=== PATIENT | male | born 1985 | race Hispanic/Latino ===

== ENCOUNTER 2018-06-08 21:55 | Emergency (ER) | payer SELFPAY ==
[2018-06-08 22:32] LABS: Absolute Monocytes 0.8 K/uL (0.1-1.3); Absolute Neutrophil 2.6 K/uL (1.8-8.0); Basophils % 0.8 % (0-1.3); Hematocrit 42.3 % (39.6-49.0); Lymphocytes % 36.3 % (15.3-44.8); MPV 8.2 fL (7.6-11.3); Monocytes % 14.3 % (3.3-12.3); RBC Red Blood Cell Count 4.74 M/uL (4.33-5.43)
[2018-06-08 22:36] LABS: Protime INR 1.06
[2018-06-08 22:37] LABS: Urine Blood NEGATIVE (NEG); Urine Glucose NEGATIVE (NEG); Urine Protein 2+ (NEG); Urine Specific Gravity 1.025 (1.005-1.030); Urine pH 6.5 (5.0-7.0)
[2018-06-08 22:51] LABS: Barbiturates NEGATIVE (NEGATIVE); Benzodiazepines NEGATIVE (NEGATIVE); Cocaine NEGATIVE (NEGATIVE); METHAMPHETAM POSITIVE (NEGATIVE); Methadone NEGATIVE (NEGATIVE); Opiates NEGATIVE (NEGATIVE); Phencyclidine NEGATIVE (NEGATIVE); THC Cannibis NEGATIVE (NEGATIVE)
--- NOTE | 2018-06-08 22:59 | ER ---
Nurse's Notes [facility] Name: Mark Cazares Age: 32 yrs Sex: Male : 1985 Arrival Date: 06/08/2018 Time: 21:57 Bed 25 Private MD: Diagnosis: Chest pain, unspecified Presentation: 06/08 21:58 Presenting complaint: EMS states: pt C/O chest pain after hyperventilating. Pt reported ca1 to have injected himself with Methamphetamine prior to hyperventilation. Also, reported to have been using Meth for a year now and has not eaten in days. Transition of care: patient was not received from another setting of care. Onset of symptoms was June 08, 2018. Risk Assessment: Do you want to hurt yourself or someone else? Patient reports no desire to harm self or others. Initial Sepsis Screen: Does the patient meet any 2 criteria? RR > 20 per min. HR > 90 bpm. Does the patient have a suspected source of infection? No. Patient's initial sepsis screen is negative. Care prior to arrival: IV initiated. 20 GA, in the left antecubital area, Glucose check: 99. 21:58 Method Of Arrival: EMS: [facility] ca1 21:58 Acuity: REGINO 3 ca1 Triage Assessment: 22:05 General: Appears in no apparent distress. uncomfortable, Behavior is agitated. Pain: ca1 Denies pain. Historical: - Allergies: 22:04 No Known Allergies; ca1 - Home Meds: 22:04 None [Active]; ca1 - PMHx: 22:05 None; ca1 - PSHx: 22:04 None; ca1 - Immunization history:: Adult Immunizations not up to date. - Social history:: Smoking status: Patient uses tobacco products, denies chronic smoking, but will smoke occasionally. - Ebola Screening: : No symptoms or risks identified at this time. Screenin:10 Abuse screen: Denies threats or abuse. Denies injuries from another. Nutritional ca1 screening: No deficits noted. Tuberculosis screening: No symptoms or risk factors identified. Fall Risk None identified. Assessment: 22:10 General: Appears in no apparent distress. uncomfortable, Behavior is agitated. Pain: ca1 Denies pain. Neuro: Level of Consciousness is awake, alert, obeys commands, Oriented to person, place, time, situation. Cardiovascular: Heart tones S1 S2 present Capillary refill < 3 seconds Patient's skin is warm and dry. Cardiovascular: Rhythm is sinus tachycardia. Respiratory: Airway is patent Respiratory effort is even, unlabored, Respiratory pattern is regular, symmetrical, Breath sounds are clear bilaterally. GI: Abdomen is flat, non-distended, Bowel sounds present X 4 quads. Abd is soft and non tender X 4 quads. : No deficits noted. No signs and/or symptoms were reported regarding the genitourinary system. EENT: No deficits noted. No signs and/or symptoms were reported regarding the EENT system. Derm: Skin is intact, is healthy with good turgor, Skin is pink, warm \\T\\ dry. Musculoskeletal: Circulation, motion, and sensation intact. Capillary refill < 3 seconds. 22:20 Reassessment: Patient appears in no apparent distress at this time. Patient is ca1 alert/active/playful, equal unlabored respirations, skin warm/dry/pink. Pt reports of hearing his brother and "Isabela's voice", looked outside his room to look for his brother. 22:37 Reassessment: Pt still reports of hearing his brother's voice and he said he wants to ca1 go home. Wants his IV out and refuses treatment. KOSTAS Keller went to nurses station to inform provider. I removed IV then pt walked out of the ER. Vital Signs: 22:05 BP 146 / 78; Pulse 120; Resp 23 S; Temp 98.1; Pulse Ox 100% on R/A; Weight 108.86 kg; ca1 Height 6 ft. 0 in. (182.88 cm); Pain 0/10; 22:05 Body Mass Index 32.55 (108.86 kg, 182.88 cm) ca1 ED Course: 21:57 Patient arrived in ED. ca1 21:58 Kade Jimenez PA is PHCP. [facility] 21:58 Danish Zapata MD is Attending Physician. [facility] 22:04 Triage completed. ca1 22:05 Arm band placed on right wrist. EKG completed in triage. Results shown to MD. ca1 22:10 Patient has correct armband on for positive identification. Placed in gown. Bed in low ca1 position. Call light in reach. Side rails up X 1. crusher wet ground mica on. Pulse ox on. NIBP on. Warm blanket given. 22:10 Maintain EMS IV. Dressing intact. Good blood return noted. Site clean \\T\\ dry. Gauge \\T\\ ca 1 site: g20 LAC. 22:17 Kelly Boo, RN is Primary Nurse. ca1 22:37 IV discontinued, intact, bleeding controlled, No redness/swelling at site. Pressure ca1 dressing applied. 22:37 No provider procedures requiring assistance completed. ca1 Administered Medications: No medications were administered Outcome: 22:37 AMA Left before signing form. ca1 22:37 Condition: stable 22:37 Discharge instructions given to Instructed on 22:59 Patient left the ED. ca1 Signatures: Kade Jimenez PA PA jmm Acob, Cheryl RN RN ca1 Corrections: (The following items were deleted from the chart) 22:15 20:05 Patient has correct armband on for positive identification. Placed in gown. Bed ca1 in low position. Call light in reach. Side rails up X 1. ca1 22:15 20:05 crusher wet ground mica on. Pulse ox on. NIBP on. ca1 ca1 22:15 20:05 Warm blanket given. ca1 ca1 22:16 20:05 General: Appears in no apparent distress. uncomfortable, Behavior is agitated, ca1ca1 22:16 20:05 Pain: Denies pain. ca1 ca1 22:16 20:05 Neuro: Level of Consciousness is awake, alert, obeys commands, Oriented to ca1 person, place, time, situation, ca1 22:16 20:05 Cardiovascular: Heart tones S1 S2 present Capillary refill < 3 seconds Patient's ca1 skin is warm and dry. ca1 22:16 20:05 Respiratory: Airway is patent Respiratory effort is even, unlabored, Respiratory ca1 pattern is regular, symmetrical, Breath sounds are clear bilaterally. ca1 22:16 20:05 GI: ca1 ca1 22:16 20:05 Cardiovascular: Rhythm is sinus tachycardia ca1 ca1 22:16 20:05 GI: Abdomen is flat, non-distended, Bowel sounds present X 4 quads. Abd is soft ca1 and non tender X 4 quads. ca1 22:16 20:05 : No deficits noted. No signs and/or symptoms were reported regarding the ca1 genitourinary system. ca1 22:16 20:05 EENT: No deficits noted. No signs and/or symptoms were reported regarding the ca1 EENT system. ca1 22: 20:05 Derm: Skin is intact, is healthy with good turgor, Skin is pink, warm \\T\\ dry. ca1 ca1 22: 20:05 Musculoskeletal: Circulation, motion, and sensation intact. Capillary refill < 3 ca1 seconds, ca1 22: 20:05 Abuse screen: Denies threats or abuse. Denies injuries from another. ca1 ca1 22: 20:05 Nutritional screening: No deficits noted. ca1 ca1 22: 20:05 Tuberculosis screening: No symptoms or risk factors identified. ca1 ca1 22: 20:05 Fall Risk None identified. ca1 ca1 : 22:37 Reassessment: Pt still reports of hearing his brother's voice and he said he ca1 wants to go home. Wants his IV out and refuses treatment. KOSTAS Keller went to nurses station to inform provider. I removed IV then pt walked out of the ER. ca1
--- NOTE | 2018-06-08 23:00 | EDPHYS ---
Physician Documentation [facility] Name: Mark Cazares Age: 32 yrs Sex: Male : 1985 Arrival Date: 06/08/2018 Time: 21:57 Bed 25 Private MD: ED Physician Danish Zapata HPI: 06/08 22:14 This 32 yrs old Male presents to ER via EMS with complaints of Chest Pain. [facility] 22:14 The patient or guardian reports chest pain that is located primarily in the substernal [facility] area. The pain does not radiate. Associated signs and symptoms: Pertinent positives: shortness of breath. The chest pain is described as squeezing. This is a 32 year old male with no chronic medical conditions that presents to the ED with complaints of chest pain and shortness of breath after he injected methamphetamine. Patient states it was a stronger dose than previously given. Patient states he has not had a reaction like this before and he called EMS. Patient states his symptoms have currently resolved. . Historical: - Allergies: 22:04 No Known Allergies; ca1 - Home Meds: 22:04 None [Active]; ca1 - PMHx: 22:05 None; ca1 - PSHx: 22:04 None; ca1 - Immunization history:: Adult Immunizations not up to date. - Social history:: Smoking status: Patient uses tobacco products, denies chronic smoking, but will smoke occasionally. - Ebola Screening: : No symptoms or risks identified at this time. ROS: 22:14 Constitutional: Negative for fever, chills, and weight loss. jmm 22:14 Cardiovascular: Positive for chest pain. 22:14 Respiratory: Positive for shortness of breath. 22:14 All other systems are negative. Exam: 22:14 Head/Face: atraumatic. Eyes: EOMI, no conjunctival erythema appreciated ENT: Moist jm Mucus Membranes Neck: Trachea midline, Supple Chest/axilla: Normal chest wall appearance and motion. 22:14 Respiratory: Normal respirations, no respiratory distress appreciated Abdomen/GI: Non distended, soft Back: Normal ROM Skin: General appearance color normal MS/ Extremity: Moves all extremities, no obvious deformities appreciated, no edema noted to the lower extremities Neuro: Awake and alert, normal gait Psych: Behavior is normal, Mood is normal, Patient is cooperative and pleasant 22:14 Constitutional: The patient appears alert, awake, anxious. 22:14 Cardiovascular: Rate: tachycardic, Rhythm: regular, Pulses: no pulse deficits are appreciated. Vital Signs: 22:05 BP 146 / 78; Pulse 120; Resp 23 S; Temp 98.1; Pulse Ox 100% on R/A; Weight 108.86 kg; ca1 Height 6 ft. 0 in. (182.88 cm); Pain 0/10; 22:05 Body Mass Index 32.55 (108.86 kg, 182.88 cm) ca1 MDM: 22:19 Patient medically screened. [facility] 22:51 Data reviewed: vital signs, nurses notes. [facility] 22:51 ED course: I discussed the need for further evaluation due to concerns for life jm threatening cardiac conditions. Patient left the ED prior to full evaluation. . 06/08 22:14 Order name: Acetaminophen [facility] 06/08 22:14 Order name: Basic Metabolic Panel [facility] 06/08 22:14 Order name: CBC with Diff; Complete Time: 22:47 [facility] 06/08 22:14 Order name: ETOH Level [facility] 06/08 22:14 Order name: Hepatic Function [facility] 06/08 22:14 Order name: PT-INR; Complete Time: 22:47 [facility] 06/08 22:14 Order name: Ptt, Activated; Complete Time: 22:47 [facility] 06/08 22:14 Order name: Salicylate [facility] 06/08 22:14 Order name: Urine Drug Screen; Complete Time: 22:51 [facility] 06/08 22:14 Order name: Troponin (emerg Dept Use Only) [facility] 06/08 22:16 Order name: Acetaminophen Level [facility] 06/08 22:16 Order name: Basic Metabolic Panel [facility] 06/08 22:30 Order name: Urine Dipstick--Ancillary (enter results); Complete Time: 22:47 [facility] 06/08 22:14 Order name: EKG; Complete Time: 22:16 [facility] 06/08 22:14 Order name: EKG - Nurse/Tech; Complete Time: 22:25 [facility] 06/08 22:14 Order name: IV Saline Lock; Complete Time: 22:25 [facility] 06/08 22:14 Order name: Labs collected and sent; Complete Time: 22:25 [facility] 06/08 22:14 Order name: Urine Dipstick-Ancillary (obtain specimen); Complete Time: 22:25 [facility] Administered Medications: No medications were administered Disposition: 06/08/18 22:58 Patient has left against medical advice. Impression: Chest pain, unspecified. - Patients states they are going to Home. - Condition is Stable. Follow up: Private Physician; When: 2 - 3 days; Reason: Recheck today's complaints, Continuance of care, Re-evaluation by your physician. - Problem is new. - Symptoms have improved. Signatures: Dispatcher [employer] EDMS Kade Jimenez PA PA jmm Acob, Cheryl RN RN ca1 Corrections: (The following items were deleted from the chart) 22:59 22:58 06/08/2018 22:58 Patients has left against medical advice. Impression: Chest ca1 pain, unspecified. Patient states they are going to Home. Condition is Stable. Follow up: Private Physician; When: 2 - 3 days; Reason: Recheck today's complaints, Continuance of care, Re-evaluation by your physician. Problem is new. Symptoms have improved. mateus
[2018-06-08 23:08] LABS: ALT/SGPT 55 U/L (12-78); AST/SGOT 29 U/L (15-37); Alkaline Phosphatase 38 U/L (45-117); BUN Blood Urea Nitrogen 11 mg/dL (7-18); Bicarbonate 23 mmol/L (21-32); Bilirubin Direct 0.1 mg/dL (0-0.2); Bilirubin Total 0.5 mg/dL (0.2-1.0); Glucose Level 89 mg/dL (74-106); Potassium 3.1 mmol/L (3.5-5.1); Protein, Total 7.4 g/dL (6.4-8.2); Sodium Level 139 mmol/L (136-145); Troponin (Emerg Dept Use Only) < 0.02 ng/mL (0.0-0.045)
--- NOTE | 2018-06-09 16:50 | EKG ---
Test Date: 2018-06-08 Test Time: 21:56:47 Presentation Team Member: LAURO MEASUREMENT RESULTS: Intervals: Rate: 109 SD: 162 QRSD: 98 QT: 340 QTc: 457 [place]: P: 46 SD: 162 QRS: 58 T: 39 INTERPRETIVE STATEMENTS: Sinus tachycardia Otherwise normal ECG No previous ECG available for comparison Electronically Signed On 06-09-18 16:49:40 CDT by Papo Richardson
== END 2018-06-08 22:59 | disposition left against medical advice (07) ==
LOC: ER 21:55
DX: R07.9 Chest pain, unspecified (principal); Z72.0 Tobacco use
CPT/HCPCS: 36415; 80048; 80076; 80307; 80320; 80329; 81003; 84484; 85025; 85610; 85730; 93005; 99284